=== PATIENT | female | born 1995 | race Caucasian/White ===

== ENCOUNTER 2018-03-03 12:34 | Observation (INO) | payer MEDICAID, OTHER ==
[2018-03-03] MEDS ORDERED: Phenergan 25 MG INJ IV ONE (12:49)
[2018-03-03] MEDS ORDERED: Zofran 4 MG/2 ML VIAL ONE ×2 (12:49→15:09)
[2018-03-03] MEDS ORDERED: Sodium Chloride 0.9% 1000 ML 1,000 ML ONE ×2 (12:49→14:05)
[2018-03-03] MEDS ORDERED: Sodium Chloride 0.9% 1000 ML 1,000 ML IV STA ×2 (12:49→13:50)
[2018-03-03] MEDS ORDERED: Phenergan 25 MG INJ ONE (12:51)
--- NOTE | 2018-03-03 12:53 | ERPHSYRPT ---
- History of Present Illness Time Seen by Provider: 03/03/18 12:51 Historian: patient Physician History: 22-year-old white female arrives with complaint of vomiting persistently. Patient arrives retching having trouble giving a good history at this time. Denies allergies. Timing/Duration: today Activities at Onset: none Allergies/Adverse Reactions: No Known Drug Allergies Allergy (Unverified 03/03/18 15:02) Home Medications: No Reportable Medications [No Reported Medications] 03/03/18 [History] - Review of Systems Constitutional: No Fever, No Chills Eyes: No Symptoms Ears, Nose, & Throat: No Symptoms Respiratory: No Cough, No Dyspnea Abdominal/Gastrointestinal: Nausea, Vomiting Genitourinary Symptoms: No Dysuria Musculoskeletal: No Back Pain, No Neck Pain Skin: No Rash Neurological: No Dizziness, No Focal Weakness, No Sensory Changes Psychological: No Symptoms Endocrine: No Symptoms - Past Medical History Pertinent Past Medical History: No - Nursing Vital Signs Nursing Vital Signs: Initial Vital Signs Temperature 99.2 F 03/03/18 12:58 Pulse Rate 72 03/03/18 12:58 Respiratory Rate 20 03/03/18 12:58 Blood Pressure 119/72 03/03/18 12:58 O2 Sat by Pulse Oximetry 99 03/03/18 12:58 Pain Scale Pain Intensity 8 - Physical Exam General Appearance: other (well-developed white female retching) Eye Exam: PERRL/EOMI, eyes nml inspection Ears, Nose, Throat Exam: normal ENT inspection, pharynx normal, moist mucous membranes Neck Exam: normal inspection, non-tender, supple, full range of motion Respiratory Exam: normal breath sounds, lungs clear, No respiratory distress Cardiovascular Exam: regular rate/rhythm, normal heart sounds Gastrointestinal/Abdomen Exam: soft, normal bowel sounds Back Exam: normal inspection, normal range of motion, No CVA tenderness, No vertebral tenderness Extremity Exam: normal inspection, normal range of motion, pelvis stable Neurologic Exam: alert, oriented x 3, cooperative, 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, normal mood/affect, nml cerebellar function, sensation nml, No motor deficits Skin Exam: normal color, warm, dry SpO2 Interpretation: normal - Course Nursing assessment & vital signs reviewed: Yes Ordered Tests: Active Orders 24 hr Category Date Time Status IV Insertion STAT Care 03/03/18 12:49 Active ACETAMINOPHEN Stat Lab 03/03/18 13:00 Completed AMYLASE Stat Lab 03/03/18 13:00 Completed CBC W DIFF Stat Lab 03/03/18 13:00 Completed CMP Stat Lab 03/03/18 13:00 Completed HCG QUALITATIVE,SERUM Stat Lab 03/03/18 13:00 Completed LIPASE Stat Lab 03/03/18 13:00 Completed SALICYLATE Stat Lab 03/03/18 13:00 Completed UA W/ MICROSCOPIC Stat Lab 03/03/18 Completed Urine Triage Profile Stat Lab 03/03/18 Completed Medication Summary Discontinued Medications Generic Name Dose Route Start Last Admin Trade Name Freq PRN Reason Stop Dose Admin Diphenhydramine HCl 25 mg 03/03/18 13:43 03/03/18 13:48 Benadryl 50 Mg/Ml IV 03/03/18 13:44 25 mg STAT ONE Administration Diphenhydramine HCl Confirm 03/03/18 13:47 Benadryl 50 Mg/Ml Administered 03/03/18 13:48 Dose 50 mg .ROUTE .STK-MED ONE Sodium Chloride 1,000 mls @ 999 mls/hr 03/03/18 12:49 03/03/18 13:54 Sodium Chloride 0.9% 1000 Ml IV 03/03/18 13:49 Infused .Q1H1M STA Infusion Sodium Chloride Confirm 03/03/18 12:49 Sodium Chloride 0.9% 1000 Ml Administered 03/03/18 12:50 Dose 1,000 mls @ ud .ROUTE .STK-MED ONE Sodium Chloride 1,000 mls @ 999 mls/hr 03/03/18 13:50 03/03/18 15:08 Sodium Chloride 0.9% 1000 Ml IV 03/03/18 14:50 Infused .Q1H1M STA Infusion Sodium Chloride Confirm 03/03/18 14:05 Sodium Chloride 0.9% 1000 Ml Administered 03/03/18 14:06 Dose 1,000 mls @ ud .ROUTE .STK-MED ONE Ondansetron HCl Confirm 03/03/18 12:49 Zofran 4 Mg/2 Ml Vial Administered 03/03/18 12:50 Dose 4 mg .ROUTE .STK-MED ONE Ondansetron HCl 4 mg 03/03/18 15:09 03/03/18 15:18 Zofran 4 Mg/2 Ml Vial IV 03/03/18 15:10 4 mg STAT ONE Administration Ondansetron HCl Confirm 03/03/18 15:09 Zofran 4 Mg/2 Ml Vial Administered 03/03/18 15:10 Dose 4 mg .ROUTE .STK-MED ONE Promethazine HCl 12.5 mg 03/03/18 12:49 03/03/18 12:53 Phenergan 25 Mg Inj IV 03/03/18 12:50 12.5 mg STAT ONE Administration Promethazine HCl Confirm 03/03/18 12:51 Phenergan 25 Mg Inj Administered 03/03/18 12:52 Dose 25 mg .ROUTE .STK-MED ONE Lab/Rad Data: Laboratory Result Diagrams 03/03/18 13:00 03/03/18 13:00 Laboratory Results 03/03/18 03/03/18 03/03/18 Range/Units Unknown Unknown 13:00 WBC (4.0-10.5) K/mm3 RBC (4.1-5.4) M/mm3 Hgb (12.0-16.0) gm/dl Hct (35-47) % MCV (78-100) fl MCH (26-32) pg MCHC (32-36) g/dl RDW (11.5-14.0) % Plt Count (150-450) K/mm3 MPV (6-9.5) fl Gran % (36.0-66.0) % Eos # (Auto) (0-0.5) Absolute Lymphs (auto) (1.0-4.6) Absolute Monos (auto) (0.0-1.3) Lymphocytes % (24.0-44.0) % Monocytes % (0.0-12.0) % Eosinophils % (0.00-5.0) % Basophils % (0.0-0.4) % Absolute Granulocytes (1.4-6.9) Basophils # (0-0.4) Sodium (137-145) mmol/L Potassium (3.5-5.1) mmol/L Chloride (98-107) mmol/L Carbon Dioxide (22-30) mmol/L Anion Gap (5-15) MEQ/L BUN (7-17) mg/dL Creatinine (0.52-1.04) mg/dL Estimated GFR ML/MIN Glucose (74-106) mg/dL Calcium (8.4-10.2) mg/dL Total Bilirubin (0.2-1.3) mg/dL AST (14-36) U/L ALT (0-35) U/L Alkaline Phosphatase (38-126) U/L Serum Total Protein (6.3-8.2) g/dL Albumin (3.5-5.0) g/dL Amylase (30-110) U/L Lipase (23-300) U/L Serum , Qual NEGATIVE (Negative) Ur Collection Type CCMS Urine Color YELLOW (YELLOW) Urine Appearance CLEAR (CLEAR) Urine pH 5.0 (5-6) Ur Specific [place] 1.015 (1.005-1.025) Urine Protein NEGATIVE (Negative) Urine Ketones LARGE (NEGATIVE) Urine Blood NEGATIVE (0-5) Mann/ul Urine Nitrite NEGATIVE (NEGATIVE) Urine Bilirubin NEGATIVE (NEGATIVE) Urine Urobilinogen NORMAL (0-1) mg/dL Ur Leukocyte Esterase TRACE (NEGATIVE) Urine Microscopic WBC 2-5 (0-5) /HPF Ur Epithelial Cells FEW (FEW) /HPF Urine Bacteria RARE (NEGATIVE) /HPF Urine Culture Reflexed NO (NO) Urine Glucose NEGATIVE (NEGATIVE) mg/dL Salicylates (2-20) mg/dL Urine Opiates Level NEGATIVE (NEGATIVE) Ur Methadone NEGATIVE (NEGATIVE) Acetaminophen (10-30) ug/ml Urine Barbiturates NEGATIVE (NEGATIVE) Ur Phencyclidine (PCP) NEGATIVE (NEGATIVE) Urine Amphetamine NEGATIVE (NEGATIVE) U Benzodiazepine Level NEGATIVE (NEGATIVE) Urine Cocaine NEGATIVE (NEGATIVE) Urine Marijuana (THC) POSITIVE (NEGATIVE) Specimen Received 03-03-18 [id number] 03/03/18 03/03/18 Range/Units 13:00 13:00 WBC 15.4 H (4.0-10.5) K/mm3 RBC 4.61 (4.1-5.4) M/mm3 Hgb 13.4 (12.0-16.0) gm/dl Hct 37.8 (35-47) % MCV 82.0 (78-100) fl MCH 29.1 (26-32) pg MCHC 35.4 (32-36) g/dl RDW 12.9 (11.5-14.0) % Plt Count 272 (150-450) K/mm3 MPV 8.9 (6-9.5) fl Gran % 88.4 H (36.0-66.0) % Eos # (Auto) 0 (0-0.5) Absolute Lymphs (auto) 0.85 L (1.0-4.6) Absolute Monos (auto) 0.93 (0.0-1.3) Lymphocytes % 5.5 L (24.0-44.0) % Monocytes % 6.0 (0.0-12.0) % Eosinophils % 0.0 (0.00-5.0) % Basophils % 0.1 (0.0-0.4) % Absolute Granulocytes 13.58 H (1.4-6.9) Basophils # 0.02 (0-0.4) Sodium 140 (137-145) mmol/L Potassium 3.6 (3.5-5.1) mmol/L Chloride 105 (98-107) mmol/L Carbon Dioxide 18 L (22-30) mmol/L Anion Gap 20.2 H (5-15) MEQ/L BUN 18 H (7-17) mg/dL Creatinine 0.75 (0.52-1.04) mg/dL Estimated GFR > 60.0 ML/MIN Glucose 109 H (74-106) mg/dL Calcium 9.4 (8.4-10.2) mg/dL Total Bilirubin 1.60 H (0.2-1.3) mg/dL AST 51 H (14-36) U/L ALT 33 (0-35) U/L Alkaline Phosphatase 82 (38-126) U/L Serum Total Protein 7.6 (6.3-8.2) g/dL Albumin 4.7 (3.5-5.0) g/dL Amylase 61 (30-110) U/L Lipase 41 (23-300) U/L Serum , Qual (Negative) Ur Collection Type Urine Color (YELLOW) Urine Appearance (CLEAR) Urine pH (5-6) Ur Specific [place] (1.005-1.025) Urine Protein (Negative) Urine Ketones (NEGATIVE) Urine Blood (0-5) Mann/ul Urine Nitrite (NEGATIVE) Urine Bilirubin (NEGATIVE) Urine Urobilinogen (0-1) mg/dL Ur Leukocyte Esterase (NEGATIVE) Urine Microscopic WBC (0-5) /HPF Ur Epithelial Cells (FEW) /HPF Urine Bacteria (NEGATIVE) /HPF Urine Culture Reflexed (NO) Urine Glucose (NEGATIVE) mg/dL Salicylates < 1.0 L (2-20) mg/dL Urine Opiates Level (NEGATIVE) Ur Methadone (NEGATIVE) Acetaminophen < 10 L (10-30) ug/ml Urine Barbiturates (NEGATIVE) Ur Phencyclidine (PCP) (NEGATIVE) Urine Amphetamine (NEGATIVE) U Benzodiazepine Level (NEGATIVE) Urine Cocaine (NEGATIVE) Urine Marijuana (THC) (NEGATIVE) Specimen Received - Progress Progress: improved Progress Note: 03/03/18 13:27 This is a 22-year-old white female who arrives retching Patient initially will not answer questions because of her retching she is better now and able to answer questions patient was hit in the head on the right of forehead with a ceiling fan on and February 28, 2018 patient was apparently seen at [facility] with complaint of dizziness headache and a laceration to her forehead which was sutured at [facility] she had CT of her head and facial bones which was remarkable for sinusitis otherwise normal patient with the C-spine CT with no significant abnormality patient had a rather extensive workup including CBC CMP urinalysis hCG patient was given a prescription for Phenergan and Keflex. She apparently had lost her prescription for Keflex and states [facility] would not replace that she does state she had Phenergan at home which she filled. Past medical history patient denies Patient reevaluated after IV Phenergan and is receiving IV fluids patient is now alert oriented 3. Head patient has a sutured laceration on the right frontal area no signs of infection. Eyes PERRLA EOMI fundi are unremarkable. Ears TMs are gordon and intact bilaterally. Nose is clear. Throat is clear. Neck is supple full range of motion. Lungs clear to auscultation and equal bilaterally. Heart regular rate and rhythm without murmur. Abdomen soft nontender nondistended positive bowel sounds. Extremities full range of motion pulses equal and symmetrical 2 over 4. Neuro patient alert oriented 3 cranial nerves II through XII are intact DTRs symmetrical 2 over 4 Estephania Coma Scale is 15 skin sutured laceration right forehead no erythema. Skin with good turgor oral mucosa is moist. . Plan Will repeat CBC CMP UA obtain urine drug screen. Patient is improved with Phenergan and IV fluids. . 03/03/18 16:44 Patient improving with IV fluids and Phenergan however still feels nausea.. Patient's urine shows positive large amount of ketones. Patient with increased anion gap bicarbonate of 18. On physical exam reexam patient with mild suprapubic tenderness. Patient is alert oriented 3 I've discussed the patient's case with Dr. Lew Pittman. Will place patient on observation provide IV D5 one half normal saline with 20 of potassium per liter to run at 100 mL per hour. Continue IV Phenergan and Zofran when necessary. . - Departure Time of Disposition: 16:45 Departure Disposition: Observation Clinical Impression: persistant nausea and vomiting, Dehydration Condition: Fair Critical Care Time: No Referrals: TOSHIA GONGORA [Primary Care Provider] -
[2018-03-03 13:08] LABS: BASOPHIL % 0.1 % (0.0-0.4); Basophil (Absolute #) 0.02 (0-0.4); Eosinophil (Absolute #) 0 (0-0.5); Granulocyte Absolute (ANC) 13.58 (1.4-6.9); Granulocytes % 88.4 % (36.0-66.0); Hematocrit 37.8 % (35-47); Hemoglobin 13.4 gm/dl (12.0-16.0); Lymphocyte (Absolute #) 0.85 (1.0-4.6); Lymphocytes % 5.5 % (24.0-44.0); Mean Corpuscular Hemoglobin 29.1 pg (26-32); Mean Corpuscular Hgb Concent. 35.4 g/dl (32-36); Mean Platelet Volume 8.9 fl (6-9.5); Monocyte (Absolute #) 0.93 (0.0-1.3); Platelet Count 272 K/mm3 (150-450); Red Blood Count 4.61 M/mm3 (4.1-5.4); Red Cell Distribution Width 12.9 % (11.5-14.0); White Blood Count 15.4 K/mm3 (4.0-10.5)
[2018-03-03 13:27] LABS: ALBUMIN 4.7 g/dL (3.5-5.0); ALKALINE PHOSPHATASE 82 U/L (38-126); AMYLASE 61 U/L (30-110); ANION GAP 20.2 MEQ/L (5-15); BLOOD UREA NITROGEN 18 mg/dL (7-17); CHLORIDE 105 mmol/L (98-107); Calcium 9.4 mg/dL (8.4-10.2); Carbon Dioxide 18 mmol/L (22-30); Creatinine 1 0.75 mg/dL (0.52-1.04); Glucose 109 mg/dL (74-106); LIPASE 41 U/L (23-300); Potassium 3.6 mmol/L (3.5-5.1); SGOT/AST 51 U/L (14-36); SGPT/ALT 33 U/L (0-35); SODIUM 140 mmol/L (137-145); Total Protein 7.6 g/dL (6.3-8.2)
[2018-03-03 13:28] LABS: ACETAMINOPHEN < 10 ug/ml (10-30); SALICYLATE < 1.0 mg/dL (2-20)
[2018-03-03] MEDS ORDERED: BENADRYL 50 MG/ML IV ONE (13:43)
[2018-03-03] MEDS ORDERED: BENADRYL 50 MG/ML ONE (13:47)
[2018-03-03] MEDS ORDERED: Zofran 4 MG/2 ML VIAL IV ONE (15:09)
[2018-03-03 15:46] LABS: Amphetamine,Urine NEGATIVE (NEGATIVE); Barbiturate,Urine NEGATIVE (NEGATIVE); Benzodiazepine,Urine NEGATIVE (NEGATIVE); Cocaine,Urine NEGATIVE (NEGATIVE); Methadone,Urine NEGATIVE (NEGATIVE); Opiate,Urine NEGATIVE (NEGATIVE); PCP,Urine NEGATIVE (NEGATIVE); THC,Urine POSITIVE (NEGATIVE)
[2018-03-03 15:55] LABS: Appearance CLEAR (CLEAR); Bacteria RARE /HPF (NEGATIVE); Bilirubin NEGATIVE (NEGATIVE); Blood NEGATIVE Ery/ul (0-5); Epithelial Cells FEW /HPF (FEW); Glucose NEGATIVE (NEGATIVE); Ketones LARGE (NEGATIVE); Leukocyte Esterase TRACE (NEGATIVE); Nitrite NEGATIVE (NEGATIVE); Protein,Urine Dip NEGATIVE (Negative); Specific Gravity 1.015 (1.005-1.025); Urobilinogen NORMAL mg/dL (0-1)
[2018-03-03] MEDS ORDERED: Phenergan 25 MG INJ IM PRN (17:09)
[2018-03-03] MEDS: Sodium Chloride 0.9% W/ 20 mEq KCl/LITER 1,000 ML IV SCH (17:59)
[2018-03-03] MEDS: Zofran 4 MG/2 ML VIAL IV PRN (18:05)
[2018-03-03] MEDS ORDERED: PROTONIX 40 MG IV IV ONE (20:37)
[2018-03-03] MEDS ORDERED: Carafate SUSPENSION 1000 MG/10 ML PO ONE (20:37)
--- NOTE | 2018-03-03 20:48 | PCM.HP ---
History of Present Illness - Chief Complaint Chief Complaint: dehydration. N/V Date: 03/03/18 History of Present Illness: is a 22 year old female. who late night 03/01/18 she was laying in her loft and hit her head on the fan causing a laceration on the right forehead that was bleeding heavily. she had no falling or other injury no loss of consciousness. She had CT of her head as well as her facial bones and was sutured and discharged. Since that time she has not been able to sleep she has been nauseated and dizzy. She was suffering from a cold for the week prior to this. She also developed a small amount of diarrhea yesterday. She has a slight headache. She has no focal deficits. She denies any other injuries. She has no visual symptoms. She has no neck pain. She has a burning in her epigastric area and in her chest now that is relentless. No previous history of gerd or ulcers. She was taking some ibuprofen but only rarely. She says she is not sexually active. - Review of Systems Constitutional: Fatigue, No Fever, No Chills Eyes: No Symptoms Ears, Nose, & Throat: No Symptoms Respiratory: No Cough, No Short Of Breath Cardiac: Chest Pain, No Edema, No Syncope Abdominal/Gastrointestinal: Abdominal Pain, Nausea, Vomiting, Diarrhea, No Hematemesis, No Hematochezia, No Melena Genitourinary Symptoms: No Dysuria Musculoskeletal: No Back Pain, No Neck Pain Skin: No Rash Neurological: No Dizziness, No Focal Weakness, No Sensory Changes Psychological: No Symptoms Endocrine: No Symptoms Hematologic/Lymphatic: No Symptoms Immunological/Allergic: No Symptoms Medications & Allergies Home Medications: Home Medication List No Reportable Medications [No Reported Medications] 03/03/18 [History Confirmed 03/03/18] Allergies/Adverse Reactions: Allergies Allergy/AdvReac Type Severity Reaction Status Date / Time No Known Drug Allergies Allergy Unverified 03/03/18 15:02 - Past Medical History Past Medical History: No Neurological History: Migraines (rare none recently) - Female History Hx Last Menstrual Period: one week ago Are you now?: No - Past Surgical History Past Surgical History: No - Social History Smoking Status: Smoker, status unknown (she does vape occassionally) Exposure to second hand smoke: Yes Alcohol: None Drug Use: none, other (rare marijuana but states she is around second hand marijuana smoke) - Physical Exam Vital Signs: Vital Signs - 24 hr Temp Pulse Resp BP Pulse Ox 03/03/18 17:21 99.1 F 68 16 121/71 98 03/03/18 17:12 99.1 F 68 16 121/71 98 03/03/18 16:54 61 18 112/70 97 03/03/18 15:35 64 16 119/72 100 03/03/18 14:13 84 16 112/62 100 03/03/18 12:58 99.2 F 72 20 119/72 99 General Appearance: no apparent distress, alert Neurologic Exam: alert, oriented x 3, cooperative, normal mood/affect, nml cerebellar function, nml station & gait, sensation nml, No motor deficits Eye Exam: PERRL/EOMI, eyes nml inspection, No scleral icterus, No pale conjunctivae, No photophobia Ears, Nose, Throat Exam: TMs normal (eac ceruminous bilateral), pharynx normal, dry mucous membranes, pharyngeal erythema, other (right forhead laceration well approximated no bruising mild swelling no bruising elsewhere on the face or neck ) Neck Exam: normal inspection, non-tender, supple, full range of motion, No meningismus, No Brudzinski Respiratory Exam: normal breath sounds, lungs clear, No respiratory distress Cardiovascular Exam: regular rate/rhythm, normal heart sounds, normal peripheral pulses Gastrointestinal/Abdomen Exam: soft, normal bowel sounds, tenderness (epigastric ), No mass, No guarding, No rebound Back Exam: normal inspection, normal range of motion, No CVA tenderness, No vertebral tenderness Extremity Exam: normal inspection, normal range of motion, pelvis stable Skin Exam: normal color, warm, dry, No rash Lymphatic Exam: No adenopathy Results - Labs Lab/Micro Results: Lab Results-Last 24 Hours 03/03/18 03/03/18 03/03/18 Range/Units 13:00 13:00 13:00 WBC 15.4 H (4.0-10.5) K/mm3 RBC 4.61 (4.1-5.4) M/mm3 Hgb 13.4 (12.0-16.0) gm/dl Hct 37.8 (35-47) % MCV 82.0 (78-100) fl MCH 29.1 (26-32) pg MCHC 35.4 (32-36) g/dl RDW 12.9 (11.5-14.0) % Plt Count 272 (150-450) K/mm3 MPV 8.9 (6-9.5) fl Gran % 88.4 H (36.0-66.0) % Eos # (Auto) 0 (0-0.5) Absolute Lymphs (auto) 0.85 L (1.0-4.6) Absolute Monos (auto) 0.93 (0.0-1.3) Lymphocytes % 5.5 L (24.0-44.0) % Monocytes % 6.0 (0.0-12.0) % Eosinophils % 0.0 (0.00-5.0) % Basophils % 0.1 (0.0-0.4) % Absolute Granulocytes 13.58 H (1.4-6.9) Basophils # 0.02 (0-0.4) Sodium 140 (137-145) mmol/L Potassium 3.6 (3.5-5.1) mmol/L Chloride 105 (98-107) mmol/L Carbon Dioxide 18 L (22-30) mmol/L Anion Gap 20.2 H (5-15) MEQ/L BUN 18 H (7-17) mg/dL Creatinine 0.75 (0.52-1.04) mg/dL Estimated GFR > 60.0 ML/MIN Glucose 109 H (74-106) mg/dL Calcium 9.4 (8.4-10.2) mg/dL Total Bilirubin 1.60 H (0.2-1.3) mg/dL AST 51 H (14-36) U/L ALT 33 (0-35) U/L Alkaline Phosphatase 82 (38-126) U/L Serum Total Protein 7.6 (6.3-8.2) g/dL Albumin 4.7 (3.5-5.0) g/dL Amylase 61 (30-110) U/L Lipase 41 (23-300) U/L Serum , Qual NEGATIVE (Negative) Ur Collection Type Urine Color (YELLOW) Urine Appearance (CLEAR) Urine pH (5-6) Ur Specific [place] (1.005-1.025) Urine Protein (Negative) Urine Ketones (NEGATIVE) Urine Blood (0-5) Mann/ul Urine Nitrite (NEGATIVE) Urine Bilirubin (NEGATIVE) Urine Urobilinogen (0-1) mg/dL Ur Leukocyte Esterase (NEGATIVE) Urine Microscopic WBC (0-5) /HPF Ur Epithelial Cells (FEW) /HPF Urine Bacteria (NEGATIVE) /HPF Urine Culture Reflexed (NO) Urine Glucose (NEGATIVE) mg/dL Salicylates < 1.0 L (2-20) mg/dL Urine Opiates Level (NEGATIVE) Ur Methadone (NEGATIVE) Acetaminophen < 10 L (10-30) ug/ml Urine Barbiturates (NEGATIVE) Ur Phencyclidine (PCP) (NEGATIVE) Urine Amphetamine (NEGATIVE) U Benzodiazepine Level (NEGATIVE) Urine Cocaine (NEGATIVE) Urine Marijuana (THC) (NEGATIVE) Specimen Received 03/03/18 03/03/18 Range/Units Unknown Unknown WBC (4.0-10.5) K/mm3 RBC (4.1-5.4) M/mm3 Hgb (12.0-16.0) gm/dl Hct (35-47) % MCV (78-100) fl MCH (26-32) pg MCHC (32-36) g/dl RDW (11.5-14.0) % Plt Count (150-450) K/mm3 MPV (6-9.5) fl Gran % (36.0-66.0) % Eos # (Auto) (0-0.5) Absolute Lymphs (auto) (1.0-4.6) Absolute Monos (auto) (0.0-1.3) Lymphocytes % (24.0-44.0) % Monocytes % (0.0-12.0) % Eosinophils % (0.00-5.0) % Basophils % (0.0-0.4) % Absolute Granulocytes (1.4-6.9) Basophils # (0-0.4) Sodium (137-145) mmol/L Potassium (3.5-5.1) mmol/L Chloride (98-107) mmol/L Carbon Dioxide (22-30) mmol/L Anion Gap (5-15) MEQ/L BUN (7-17) mg/dL Creatinine (0.52-1.04) mg/dL Estimated GFR ML/MIN Glucose (74-106) mg/dL Calcium (8.4-10.2) mg/dL Total Bilirubin (0.2-1.3) mg/dL AST (14-36) U/L ALT (0-35) U/L Alkaline Phosphatase (38-126) U/L Serum Total Protein (6.3-8.2) g/dL Albumin (3.5-5.0) g/dL Amylase (30-110) U/L Lipase (23-300) U/L Serum , Qual (Negative) Ur Collection Type CCMS Urine Color YELLOW (YELLOW) Urine Appearance CLEAR (CLEAR) Urine pH 5.0 (5-6) Ur Specific [place] 1.015 (1.005-1.025) Urine Protein NEGATIVE (Negative) Urine Ketones LARGE (NEGATIVE) Urine Blood NEGATIVE (0-5) Mann/ul Urine Nitrite NEGATIVE (NEGATIVE) Urine Bilirubin NEGATIVE (NEGATIVE) Urine Urobilinogen NORMAL (0-1) mg/dL Ur Leukocyte Esterase TRACE (NEGATIVE) Urine Microscopic WBC 2-5 (0-5) /HPF Ur Epithelial Cells FEW (FEW) /HPF Urine Bacteria RARE (NEGATIVE) /HPF Urine Culture Reflexed NO (NO) Urine Glucose NEGATIVE (NEGATIVE) mg/dL Salicylates (2-20) mg/dL Urine Opiates Level NEGATIVE (NEGATIVE) Ur Methadone NEGATIVE (NEGATIVE) Acetaminophen (10-30) ug/ml Urine Barbiturates NEGATIVE (NEGATIVE) Ur Phencyclidine (PCP) NEGATIVE (NEGATIVE) Urine Amphetamine NEGATIVE (NEGATIVE) U Benzodiazepine Level NEGATIVE (NEGATIVE) Urine Cocaine NEGATIVE (NEGATIVE) Urine Marijuana (THC) POSITIVE (NEGATIVE) Specimen Received 03-03-18 9788 - Other Procedures and Tests Respiratory Therapy 03/03/18 17:38 Smoking Cessation Education ONCE Assessment/Plan (1) Gastritis Current Visit: Yes Status: Acute Assessment & Plan: with the epigastric pain will give dose of carafate and protonix continue iv phenergan or zofran as needed clear liquids as tolerated iv fluids at 100 mL/h after her 2L bolus she had CT scan at time of injury of head and again 24 hours after the injury at [facility] results in paperchart with no acute abnormalities. Code(s): K29.70 - GASTRITIS, UNSPECIFIED, WITHOUT BLEEDING (2) Nausea and vomiting Current Visit: Yes Status: Acute Code(s): R11.2 - NAUSEA WITH VOMITING, UNSPECIFIED (3) Dehydration Current Visit: Yes Status: Acute Code(s): E86.0 - DEHYDRATION
[2018-03-03] MEDS: LOTRIMIN CREAM 30 GM TP SCH (21:48)
[2018-03-03] MEDS: Phenergan 25 MG INJ IV PRN (23:41)
[2018-03-04] MEDS: Sodium Chloride 0.9% W/ 20 mEq KCl/LITER 1,000 ML IV SCH ×2 (02:22→12:20)
[2018-03-04] MEDS: Zofran 4 MG/2 ML VIAL IV PRN ×2 (02:32→12:22)
[2018-03-04] MEDS: Phenergan 25 MG INJ IV PRN ×4 (03:36→18:25)
[2018-03-04 05:46] LABS: BASOPHIL % 0.1 % (0.0-0.4); Basophil (Absolute #) 0.01 (0-0.4); Eosinophil % 0.1 % (0.00-5.0); Eosinophil (Absolute #) 0.01 (0-0.5); Granulocyte Absolute (ANC) 7.41 (1.4-6.9); Hematocrit 35.7 % (35-47); Hemoglobin 12.5 gm/dl (12.0-16.0); Lymphocyte (Absolute #) 0.74 (1.0-4.6); Lymphocytes % 8.7 % (24.0-44.0); Mean Cell Volume 83.4 fl (78-100); Mean Corpuscular Hemoglobin 29.2 pg (26-32); Mean Platelet Volume 9.2 fl (6-9.5); Monocyte (Absolute #) 0.35 (0.0-1.3); Monocytes % 4.1 % (0.0-12.0); Platelet Count 193 K/mm3 (150-450); Red Blood Count 4.28 M/mm3 (4.1-5.4); Red Cell Distribution Width 12.7 % (11.5-14.0); White Blood Count 8.5 K/mm3 (4.0-10.5)
[2018-03-04 06:02] LABS: ALBUMIN 3.9 g/dL (3.5-5.0); ALKALINE PHOSPHATASE 64 U/L (38-126); BLOOD UREA NITROGEN 12 mg/dL (7-17); CHLORIDE 105 mmol/L (98-107); Calcium 8.5 mg/dL (8.4-10.2); Carbon Dioxide 20 mmol/L (22-30); Creatinine 1 0.76 mg/dL (0.52-1.04); Glucose 89 mg/dL (74-106); SGOT/AST 39 U/L (14-36); SGPT/ALT 28 U/L (0-35); SODIUM 140 mmol/L (137-145); Total Protein 6.6 g/dL (6.3-8.2)
[2018-03-04] MEDS: Protonix 40MG Tablet PO SCH (08:13)
[2018-03-04] MEDS ORDERED: MORPHINE SULFATE 2 MG INJ IV PRN (09:08)
--- NOTE | 2018-03-04 09:14 | PCM.NOTE ---
Date and Time: 03/04/18909 Subjective Assessment: she was only able to sleep for 1 hour has nonstop dry heaving and burining pain in the chest with diffuse pain now in the abdomen no shortness of breath Objective Exam General Appearance: mild distress, anxiety, thin Neurologic Exam: oriented x 3, cooperative Skin Exam: warm, dry, other (right forehead lesion well approximated no bruising or bleeding. annular rash left chest 1 lesion) Ears, Nose, Throat Exam: moist mucous membranes, pharyngeal erythema Neck Exam: non-tender, supple Respiratory Exam: normal breath sounds, lungs clear Cardiovascular Exam: regular rate/rhythm, normal heart sounds, normal peripheral pulses Gastrointestinal/Abdomen Exam: normal bowel sounds (hypoactive bowel sounds), tenderness, No distention, No rebound (voluntary guarding today on exam) Extremity Exam: normal inspection OBJECTIVE DATA Vital Signs: Vital Signs - 24 hr Temp Pulse Resp BP Pulse Ox 03/04/18 07:35 98.4 F 59 L 16 124/75 98 03/04/18 04:05 98.9 F 69 18 123/77 98 03/04/18 00:10 99.5 F 99 H 16 145/93 99 03/03/18 20:10 99.8 F 66 16 117/73 100 03/03/18 17:21 99.1 F 68 16 121/71 98 03/03/18 17:12 99.1 F 68 16 121/71 98 03/03/18 16:54 61 18 112/70 97 03/03/18 15:35 64 16 119/72 100 03/03/18 14:13 84 16 112/62 100 03/03/18 12:58 99.2 F 72 20 119/72 99 Pain Assessment - Last Documented Pain Intensity 8 Pain Scale Used FLACC Intake and Output: Intake & Output 03/01/18 03/02/18 03/03/18 03/04/18 11:59 11:59 11:59 11:59 Intake Total 1244 Output Total 650 Balance 594 Weight 51.9 kg Lab Results: Lab Results-Last 24 Hours 03/03/18 03/03/18 03/03/18 Range/Units 13:00 13:00 13:00 WBC 15.4 H (4.0-10.5) K/mm3 RBC 4.61 (4.1-5.4) M/mm3 Hgb 13.4 (12.0-16.0) gm/dl Hct 37.8 (35-47) % MCV 82.0 (78-100) fl MCH 29.1 (26-32) pg MCHC 35.4 (32-36) g/dl RDW 12.9 (11.5-14.0) % Plt Count 272 (150-450) K/mm3 MPV 8.9 (6-9.5) fl Gran % 88.4 H (36.0-66.0) % Eos # (Auto) 0 (0-0.5) Absolute Lymphs (auto) 0.85 L (1.0-4.6) Absolute Monos (auto) 0.93 (0.0-1.3) Lymphocytes % 5.5 L (24.0-44.0) % Monocytes % 6.0 (0.0-12.0) % Eosinophils % 0.0 (0.00-5.0) % Basophils % 0.1 (0.0-0.4) % Absolute Granulocytes 13.58 H (1.4-6.9) Basophils # 0.02 (0-0.4) Sodium 140 (137-145) mmol/L Potassium 3.6 (3.5-5.1) mmol/L Chloride 105 (98-107) mmol/L Carbon Dioxide 18 L (22-30) mmol/L Anion Gap 20.2 H (5-15) MEQ/L BUN 18 H (7-17) mg/dL Creatinine 0.75 (0.52-1.04) mg/dL Estimated GFR > 60.0 ML/MIN Glucose 109 H (74-106) mg/dL Calcium 9.4 (8.4-10.2) mg/dL Total Bilirubin 1.60 H (0.2-1.3) mg/dL AST 51 H (14-36) U/L ALT 33 (0-35) U/L Alkaline Phosphatase 82 (38-126) U/L Serum Total Protein 7.6 (6.3-8.2) g/dL Albumin 4.7 (3.5-5.0) g/dL Amylase 61 (30-110) U/L Lipase 41 (23-300) U/L Serum , Qual NEGATIVE (Negative) Ur Collection Type Urine Color (YELLOW) Urine Appearance (CLEAR) Urine pH (5-6) Ur Specific Lowber (1.005-1.025) Urine Protein (Negative) Urine Ketones (NEGATIVE) Urine Blood (0-5) Mann/ul Urine Nitrite (NEGATIVE) Urine Bilirubin (NEGATIVE) Urine Urobilinogen (0-1) mg/dL Ur Leukocyte Esterase (NEGATIVE) Urine Microscopic WBC (0-5) /HPF Ur Epithelial Cells (FEW) /HPF Urine Bacteria (NEGATIVE) /HPF Urine Culture Reflexed (NO) Urine Glucose (NEGATIVE) mg/dL Salicylates < 1.0 L (2-20) mg/dL Urine Opiates Level (NEGATIVE) Ur Methadone (NEGATIVE) Acetaminophen < 10 L (10-30) ug/ml Urine Barbiturates (NEGATIVE) Ur Phencyclidine (PCP) (NEGATIVE) Urine Amphetamine (NEGATIVE) U Benzodiazepine Level (NEGATIVE) Urine Cocaine (NEGATIVE) Urine Marijuana (THC) (NEGATIVE) Specimen Received 03/03/18 03/03/18 03/04/18 Range/Units Unknown Unknown 05:13 WBC 8.5 (4.0-10.5) K/mm3 RBC 4.28 (4.1-5.4) M/mm3 Hgb 12.5 (12.0-16.0) gm/dl Hct 35.7 (35-47) % MCV 83.4 (78-100) fl MCH 29.2 (26-32) pg MCHC 35.0 (32-36) g/dl RDW 12.7 (11.5-14.0) % Plt Count 193 (150-450) K/mm3 MPV 9.2 (6-9.5) fl Gran % 87.0 H (36.0-66.0) % Eos # (Auto) 0.01 (0-0.5) Absolute Lymphs (auto) 0.74 L (1.0-4.6) Absolute Monos (auto) 0.35 (0.0-1.3) Lymphocytes % 8.7 L (24.0-44.0) % Monocytes % 4.1 (0.0-12.0) % Eosinophils % 0.1 (0.00-5.0) % Basophils % 0.1 (0.0-0.4) % Absolute Granulocytes 7.41 H (1.4-6.9) Basophils # 0.01 (0-0.4) Sodium (137-145) mmol/L Potassium (3.5-5.1) mmol/L Chloride (98-107) mmol/L Carbon Dioxide (22-30) mmol/L Anion Gap (5-15) MEQ/L BUN (7-17) mg/dL Creatinine (0.52-1.04) mg/dL Estimated GFR ML/MIN Glucose (74-106) mg/dL Calcium (8.4-10.2) mg/dL Total Bilirubin (0.2-1.3) mg/dL AST (14-36) U/L ALT (0-35) U/L Alkaline Phosphatase (38-126) U/L Serum Total Protein (6.3-8.2) g/dL Albumin (3.5-5.0) g/dL Amylase (30-110) U/L Lipase (23-300) U/L Serum , Qual (Negative) Ur Collection Type CCMS Urine Color YELLOW (YELLOW) Urine Appearance CLEAR (CLEAR) Urine pH 5.0 (5-6) Ur Specific Lowber 1.015 (1.005-1.025) Urine Protein NEGATIVE (Negative) Urine Ketones LARGE (NEGATIVE) Urine Blood NEGATIVE (0-5) Mann/ul Urine Nitrite NEGATIVE (NEGATIVE) Urine Bilirubin NEGATIVE (NEGATIVE) Urine Urobilinogen NORMAL (0-1) mg/dL Ur Leukocyte Esterase TRACE (NEGATIVE) Urine Microscopic WBC 2-5 (0-5) /HPF Ur Epithelial Cells FEW (FEW) /HPF Urine Bacteria RARE (NEGATIVE) /HPF Urine Culture Reflexed NO (NO) Urine Glucose NEGATIVE (NEGATIVE) mg/dL Salicylates (2-20) mg/dL Urine Opiates Level NEGATIVE (NEGATIVE) Ur Methadone NEGATIVE (NEGATIVE) Acetaminophen (10-30) ug/ml Urine Barbiturates NEGATIVE (NEGATIVE) Ur Phencyclidine (PCP) NEGATIVE (NEGATIVE) Urine Amphetamine NEGATIVE (NEGATIVE) U Benzodiazepine Level NEGATIVE (NEGATIVE) Urine Cocaine NEGATIVE (NEGATIVE) Urine Marijuana (THC) POSITIVE (NEGATIVE) Specimen Received 03-03-18 [id number] 03/04/18 Range/Units 05:13 WBC (4.0-10.5) K/mm3 RBC (4.1-5.4) M/mm3 Hgb (12.0-16.0) gm/dl Hct (35-47) % MCV (78-100) fl MCH (26-32) pg MCHC (32-36) g/dl RDW (11.5-14.0) % Plt Count (150-450) K/mm3 MPV (6-9.5) fl Gran % (36.0-66.0) % Eos # (Auto) (0-0.5) Absolute Lymphs (auto) (1.0-4.6) Absolute Monos (auto) (0.0-1.3) Lymphocytes % (24.0-44.0) % Monocytes % (0.0-12.0) % Eosinophils % (0.00-5.0) % Basophils % (0.0-0.4) % Absolute Granulocytes (1.4-6.9) Basophils # (0-0.4) Sodium 140 (137-145) mmol/L Potassium 4.0 (3.5-5.1) mmol/L Chloride 105 (98-107) mmol/L Carbon Dioxide 20 L (22-30) mmol/L Anion Gap 19.0 H (5-15) MEQ/L BUN 12 (7-17) mg/dL Creatinine 0.76 (0.52-1.04) mg/dL Estimated GFR > 60.0 ML/MIN Glucose 89 (74-106) mg/dL Calcium 8.5 (8.4-10.2) mg/dL Total Bilirubin 1.20 (0.2-1.3) mg/dL AST 39 H (14-36) U/L ALT 28 (0-35) U/L Alkaline Phosphatase 64 (38-126) U/L Serum Total Protein 6.6 (6.3-8.2) g/dL Albumin 3.9 (3.5-5.0) g/dL Amylase (30-110) U/L Lipase (23-300) U/L Serum , Qual (Negative) Ur Collection Type Urine Color (YELLOW) Urine Appearance (CLEAR) Urine pH (5-6) Ur Specific Lowber (1.005-1.025) Urine Protein (Negative) Urine Ketones (NEGATIVE) Urine Blood (0-5) Mann/ul Urine Nitrite (NEGATIVE) Urine Bilirubin (NEGATIVE) Urine Urobilinogen (0-1) mg/dL Ur Leukocyte Esterase (NEGATIVE) Urine Microscopic WBC (0-5) /HPF Ur Epithelial Cells (FEW) /HPF Urine Bacteria (NEGATIVE) /HPF Urine Culture Reflexed (NO) Urine Glucose (NEGATIVE) mg/dL Salicylates (2-20) mg/dL Urine Opiates Level (NEGATIVE) Ur Methadone (NEGATIVE) Acetaminophen (10-30) ug/ml Urine Barbiturates (NEGATIVE) Ur Phencyclidine (PCP) (NEGATIVE) Urine Amphetamine (NEGATIVE) U Benzodiazepine Level (NEGATIVE) Urine Cocaine (NEGATIVE) Urine Marijuana (THC) (NEGATIVE) Specimen Received Radiology Exams: Radiology Procedures Category Date Time Status ABDOMEN AND PELVIS W CONTRAST [CT] Urgent Exams 03/04/18 09:07 Ordered Assessment/Plan (1) Abdominal pain Current Visit: Yes Status: Acute Qualifiers: Abdominal location: generalized Qualified Code(s): R10.84 - Generalized abdominal pain Assessment & Plan: seems to be worsened this am with voluntary guarding the burning and nausea and pain was not relieved and is more generalized today will check CT rule out acute pathology with the burning will add lidocaine and maalox to the protonix and give a dose of pepcid as well add morphine prn for the pain and continue phenergan and zofran for the nausea. continue iv fluids. with the pharyngeal erythema check strep as well Code(s): R10.9 - UNSPECIFIED ABDOMINAL PAIN (2) Gastritis Current Visit: Yes Status: Acute Code(s): K29.70 - GASTRITIS, UNSPECIFIED, WITHOUT BLEEDING (3) Nausea and vomiting Current Visit: Yes Status: Acute Code(s): R11.2 - NAUSEA WITH VOMITING, UNSPECIFIED (4) Dehydration Current Visit: Yes Status: Acute Code(s): E86.0 - DEHYDRATION
[2018-03-04] MEDS ORDERED: GI COCKTAIL 45 ML (Maalox/Lidocaine) PO ONE (09:30)
[2018-03-04] MEDS ORDERED: Pepcid 20 MG VIAL IV ONE (09:30)
[2018-03-04] MEDS: LOTRIMIN CREAM 30 GM TP SCH ×2 (09:38→22:31)
--- NOTE | 2018-03-04 12:39 | XRAY ---
Indication: Nausea, vomiting, diarrhea, umbilical pain, and low-grade fever. Multiple contiguous axial images obtained through the abdomen and pelvis using 80 cc Isovue 370 contrast only. Comparison: None Lung bases are clear. Heart is not enlarged. Noncontrasted stomach and bowel loops appear nonobstructed. Several small bowel loops and right hemicolon demonstrates mild circumferential wall thickening possibly enterocolitis. Normal appendix. Small pelvic free fluid and 1.9 cm left ovary cyst. No walled off fluid collection or free air. Gallbladder demonstrates intraluminal sludge in the dependent portion. No gallstones or abnormal biliary distention. Spleen is enlarged measuring 13.3 cm in CC dimension. Remaining liver, pancreas, adrenal glands, kidneys, ureters, bladder, uterus, and aorta appear unremarkable. No pathologic retroperitoneal lymphadenopathy. Osseous structures intact. No ventral or inguinal hernias. Impression: 1. Small bowel and right hemicolon bowel wall thickening. Rule out enterocolitis. 2. Pelvic free fluid more than expected from a ruptured/leaking ovary cyst. There is 1.9 cm left ovary cyst. 3. Gallbladder sludge. Gallbladder sonogram may yield further information. 4. Incidental splenomegaly. CT DI 8.56
--- NOTE | 2018-03-04 14:19 | XRAY ---
Indication: Abdominal pain. Gallbladder sludge on same day CT abdomen/pelvis. Two-dimensional gallbladder sonogram performed. Comparison: None Gallbladder normally distended without gallstones, wall thickening, or pericholecystic fluid. Common bile duct measures 2.1 mm. Remaining visualized portions of the liver, pancreas, and right kidney appear sonographically normal. Right kidney measures 9.6 cm in length. No ascites. Impression: Negative gallbladder sonogram.
[2018-03-04] MEDS ORDERED: Ativan 2 MG/1 ML VIAL IV PRN (20:31)
[2018-03-04] MEDS: D5W/0.45NS W/ 20mEq KCl 1000 ML 1,000 ML IV SCH (22:32)
[2018-03-05] MEDS: Reglan 10 MG/2 ML IV PRN ×4 (01:59→22:56)
[2018-03-05] MEDS: D5W/0.45NS W/ 20mEq KCl 1000 ML 1,000 ML IV SCH ×2 (07:04→15:26)
[2018-03-05] MEDS ORDERED: TYLENOL 325 MG PO PRN (08:05)
[2018-03-05] MEDS: LOTRIMIN CREAM 30 GM TP SCH ×2 (08:42→22:56)
[2018-03-05] MEDS: Protonix 40MG Tablet PO SCH (08:42)
--- NOTE | 2018-03-05 17:31 | PCM.NOTE ---
Date and Time: 03/05/18 1724 Subjective Assessment: also seen at 08:00 she was doing a little better was able to sleep from 2 am to 8 am for the first time without vomiting no diarrhea only 1 episode since hospitalization. she still has persistent nausea and abdominal pain has not been able to eat or drink anything. this afternoon she had 1 bite of jellow and tonight a few bites of soup Objective Exam General Appearance: mild distress, alert Neurologic Exam: alert, oriented x 3, cooperative, normal mood/affect, nml cerebellar function, sensation nml, No motor deficits Skin Exam: normal color, warm, dry Eye Exam: PERRL, EOMI, eyes nml inspection Ears, Nose, Throat Exam: normal ENT inspection, pharynx normal, moist mucous membranes Neck Exam: normal inspection, non-tender, supple, full range of motion Respiratory Exam: normal breath sounds, lungs clear, No respiratory distress Cardiovascular Exam: regular rate/rhythm, normal heart sounds Gastrointestinal/Abdomen Exam: soft, normal bowel sounds, tenderness (diffuse worse in the epigastric area), No distention, No mass, No guarding Extremity Exam: normal inspection, normal range of motion Back Exam: normal inspection, normal range of motion, No CVA tenderness, No vertebral tenderness Pelvic Exam: deferred Rectal Exam: deferred OBJECTIVE DATA Vital Signs: Vital Signs - 24 hr Temp Pulse Resp BP Pulse Ox 03/05/18 16:00 98.7 F 59 L 16 134/77 99 03/05/18 12:00 98.7 F 57 L 16 120/73 98 03/05/18 08:00 98.3 F 65 16 124/82 98 03/05/18 04:00 98.4 F 67 16 119/77 98 03/04/18 23:56 98.6 F 65 16 117/74 98 03/04/18 20:00 100.0 F 94 H 16 157/90 98 Pain Assessment - Last Documented Pain Intensity 0 Pain Scale Used 0-10 Pain Scale Intake and Output: Intake & Output 03/03/18 03/04/18 03/05/18 03/06/18 11:59 11:59 11:59 11:59 Intake Total 1244 3296 240 Output Total 650 400 800 Balance 594 2896 -560 Weight 51.9 kg 50.7 kg Radiology Exams: Radiology Procedures Category Date Time Status ABDOMEN AND PELVIS W CONTRAST [CT] Urgent Exams 03/04/18 09:07 Completed GALLBLADDER [US] Routine Exams 03/04/18 13:58 Completed Multi-Disciplinary Progress Notes: Multi-Disciplinary Progress Notes 03/05/18 10:25 (created 03/05/18 16:28) Case Management Note by Shaina Omer PLANS TO RETURN HOME TO PRE EPISODIC LEVEL OF [facility]. INDEPENDENT WITH ALL ADL'S. DENIES ADDNL NEEDS. WILL FOLLOW. Initialized on 03/05/18 16:28 - END OF NOTE Assessment/Plan (1) Enterocolitis Current Visit: Yes Status: Acute Assessment & Plan: severe still with vomiting and pain and inability to tolerate po other then a few bites she is improving better today now that she rested and is looking better hopefully by tomorrow she will adequately be able to tolerate po to maintain her own hydration. Code(s): K52.9 - NONINFECTIVE GASTROENTERITIS AND COLITIS, UNSPECIFIED (2) Free fluid in pelvis Current Visit: Yes Status: Acute Code(s): R18.8 - OTHER ASCITES (3) Abdominal pain Current Visit: Yes Status: Acute Onset Date: ~03/04/18 Qualifiers: Abdominal location: generalized Qualified Code(s): R10.84 - Generalized abdominal pain Code(s): R10.9 - UNSPECIFIED ABDOMINAL PAIN (4) Gastritis Current Visit: Yes Status: Acute Onset Date: ~03/03/18 Code(s): K29.70 - GASTRITIS, UNSPECIFIED, WITHOUT BLEEDING (5) Nausea and vomiting Current Visit: Yes Status: Acute Onset Date: ~03/03/18 Code(s): R11.2 - NAUSEA WITH VOMITING, UNSPECIFIED (6) Dehydration Current Visit: Yes Status: Acute Onset Date: ~03/03/18 Code(s): E86.0 - DEHYDRATION
[2018-03-05] MEDS: Zofran 4 MG/2 ML VIAL IV PRN (17:42)
[2018-03-06] MEDS: D5W/0.45NS W/ 20mEq KCl 1000 ML 1,000 ML IV SCH ×2 (00:34→09:03)
[2018-03-06] MEDS: Zofran 4 MG/2 ML VIAL IV PRN (05:06)
[2018-03-06 05:39] LABS: BASOPHIL % 0.3 % (0.0-0.4); Basophil (Absolute #) 0.02 (0-0.4); Eosinophil % 2.2 % (0.00-5.0); Eosinophil (Absolute #) 0.16 (0-0.5); Granulocytes % 62.9 % (36.0-66.0); Hematocrit 37.8 % (35-47); Hemoglobin 13.6 gm/dl (12.0-16.0); Lymphocyte (Absolute #) 1.87 (1.0-4.6); Lymphocytes % 26.2 % (24.0-44.0); Mean Cell Volume 81.1 fl (78-100); Mean Corpuscular Hemoglobin 29.2 pg (26-32); Mean Platelet Volume 8.6 fl (6-9.5); Monocytes % 8.4 % (0.0-12.0); Platelet Count 224 K/mm3 (150-450); Red Blood Count 4.66 M/mm3 (4.1-5.4); Red Cell Distribution Width 12.6 % (11.5-14.0); White Blood Count 7.2 K/mm3 (4.0-10.5)
[2018-03-06 05:52] LABS: ALBUMIN 3.5 g/dL (3.5-5.0); ALKALINE PHOSPHATASE 54 U/L (38-126); ANION GAP 12.2 MEQ/L (5-15); BLOOD UREA NITROGEN 4 mg/dL (7-17); CHLORIDE 102 mmol/L (98-107); Calcium 8.5 mg/dL (8.4-10.2); Carbon Dioxide 27 mmol/L (22-30); Creatinine 1 0.73 mg/dL (0.52-1.04); Glucose 104 mg/dL (74-106); Potassium 3.6 mmol/L (3.5-5.1); SGOT/AST 15 U/L (14-36); SGPT/ALT 18 U/L (0-35); SODIUM 137 mmol/L (137-145); Total Protein 6.1 g/dL (6.3-8.2)
[2018-03-06] MEDS: Protonix 40MG Tablet PO SCH (09:03)
[2018-03-06] MEDS: LOTRIMIN CREAM 30 GM TP SCH (10:00)
--- NOTE | 2018-03-06 10:22 | PCM.DCORD ---
- Discharge Discharge Date: 03/06/18 Disposition: Home, Self-Care Condition: Fair Prescriptions: New Omeprazole 20 MG [Prilosec 20 mg] 20 mg PO DAILY #14 capsule. Ondansetron ODT 4 MG [Zofran Odt 4 mg] 4 mg PO Q6H PRN PRN #10 tab.rapdis PRN Reason: Vomiting Follow up with: RJ FISHER [ACTIVE STAFF] - 1 Week
[2018-03-06 12:22] VITALS: BP 133/83; PULSE 79; O2SAT 98
--- NOTE | 2018-03-08 10:09 | DS ---
DISCHARGE DIAGNOSES: 1) ENTEROCOLITIS. 2) DEHYDRATION. 3) ILLICIT SUBSTANCE ABUSE. DISCHARGE PHYSICAL EXAMINATION: VITALS: Temperature current 98.4F, temperature max 99.7F, heart rate 56 to 65, respiratory rate 18, blood pressure 110 to 130 over 71 to 81, weight 50.7 kg. Oxygen saturation 97 to 99% on room air. GENERAL: The patient is lying in bed a pleasant lady in no acute distress. CVS: She has a regular rate and rhythm. No murmurs, gallops or rubs are appreciated. CHEST: Clear to auscultation bilaterally. No crackles or wheezes. ABDOMEN: Soft with mild umbilical tenderness. No guarding. No rigidity. EXTREMITIES: No clubbing, cyanosis or edema. SKIN: Warm, dry and intact. HOSPITAL COURSE: 1) ENTEROCOLITIS: She had a CT scan that revealed some mild thickening of her small bowel and right hemicolon and gallbladder sludge. She had gallbladder ultrasound that was normal. On the day of discharge the patient was able to tolerate liquids. Her carbon dioxide was normal at 27. She was still having some green, watery stools and some nausea. We are planning to send her home with Zofran to take and try to continue to encourage fluids at home. Her white blood cell count was normal at 7.2. 2) DEHYDRATION: This has resolved with IV fluids. 3) ILLICIT SUBSTANCE ABUSE: Her urine tox was positive for marijuana when she came in. DISCHARGE MEDICATIONS: Zofran 4 mg p.o. every six hours as needed for nausea, vomiting. Omeprazole 20 mg p.o. daily. FOLLOW UP: She is to follow up with Dr. Jose Scanlon this coming week. DISPOSITION: The patient was discharged to home in fair condition.
== END 2018-03-06 13:10 | disposition home or self-care (01) ==
LOC: ED 12:34 → MED SURG 17:08
PROVIDERS: ADMIT Internal Medicine; ATTEND Family Medicine
DX: K52.9 Noninfective gastroenteritis and colitis, unspecified (principal); E86.0 Dehydration; F19.19 Other psychoactive substance abuse with unspecified psychoactive substance-induced disorder; K29.70 Gastritis, unspecified, without bleeding; R18.8 Other ascites
CPT/HCPCS: 36000; 36415; 74177; 76705; 80053; 80307; 81000; 82150; 83690; 84703; 85025; 87651; 96360; 96361; 96374; 96375; 99285; G0378; G0481; J1200; J2060; J2270; J2405; J2550; A9270-GY